=== PATIENT | female | born 1980 ===

== ENCOUNTER 2017-11-08 06:25 | Day surgery (SDC) | payer OTHER ==
[2017-11-07 13:58] VITALS: BMI 25.6
--- NOTE | 2017-11-08 07:33 | CP.SDSHP ---
Same Day Surgery H & P - History Proposed Procedure: laparoscopic BTL Pre-Op Diagnosis: Desired sterilization - Previous Medical/Surgical History Pulmonary: Asthma Comments: hx of asthma as a child Previous Surgical History: C/S 2008 - Allergies Allergies: Allergies Penicillins Allergy (Verified 11/07/17 13:57) RASH Sulfa (Sulfonamide Antibiotics) Adverse Reaction (Verified 11/07/17 13:57) RASH - Physical Exam General Appearance: w/o x3, NAD Vital Signs: Vital Signs 11/08/17 11/08/17 07:00 07:05 Temperature 98.1 F Pulse Rate 69 69 Respiratory 18 Rate Blood Pressure 135/90 O2 Sat by Pulse 98 Oximetry Mental Status: Alert & Oriented x3 Neuro: WNL Heart: WNL Lungs: WNL GI: WNL - {Optional Preform as Required} Breast: WNL Abdomen: Other Integument: WNL [employer]: WNL : WNL Other Pertinent Findings: old Abd scar - Impression Impression: desired infertility - Date & Time Date: 11/08/17 Time: 07:34 Short Stay Discharge - Short Stay Discharge Admitting Diagnosis/Reason for Visit: Z64.1 Disposition: HOME/ ROUTINE Referrals: Jag Yi MD [Primary Care Provider] -
[2017-11-08] MEDS ORDERED: Propofol 10 mg/ml Inj (20 ML) ONE (08:00)
[2017-11-08] MEDS ORDERED: Rocuronium 10 mg/ml (5 ml) ONE (08:01)
[2017-11-08] MEDS ORDERED: Succinylcholine 200 mg/10 ml Inj IV ONE (08:01)
[2017-11-08] MEDS ORDERED: Midazolam 2 MG/2 ML VIAL ONE (08:01)
[2017-11-08] MEDS ORDERED: Sevoflurane - Inhalation Anesthetic Liq (250 ml) ONE (08:02)
[2017-11-08] MEDS ORDERED: Neostigmine Methylsulfate 3mg/3ml Syringe IV ONE (08:07)
[2017-11-08] MEDS ORDERED: Lactated Ringer's 1,000 ML IV ONE (08:09)
[2017-11-08] MEDS ORDERED: Lactated Ringer's 500 ML IV ONE (08:45)
[2017-11-08] MEDS ORDERED: DiphenhydrAMINE 50 mg/ml Inj IVP PRN (09:22)
[2017-11-08] MEDS ORDERED: Lactated Ringer's 1,000 ML IV SCH (09:30)
[2017-11-08] MEDS: HYDROmorphone 0.5 mg/0.5 ml ISec IVP PRN ×3 (09:30→10:00)
[2017-11-08] MEDS ORDERED: HYDROmorphone 0.5 mg/0.5 ml ISec IVP PRN (10:05)
[2017-11-08 11:40] VITALS: RESP 18
[2017-11-08] MEDS ORDERED: Oxycodone/Acetaminophen 5/325 mg Tab PO STA (13:10)
[2017-11-08] MEDS ORDERED: Oxycodone/Acetaminophen 5/325 mg Tab PO ONE (13:35)
[2017-11-08 14:05] VITALS: O2SAT 99
--- NOTE | 2017-11-08 14:13 | CP.SDSHP ---
Same Day Surgery H & P - Allergies Allergies: Allergies Penicillins Allergy (Verified 11/07/17 13:57) RASH Sulfa (Sulfonamide Antibiotics) Adverse Reaction (Verified 11/07/17 13:57) RASH - Physical Exam Vital Signs: Vital Signs 11/08/17 11/08/17 11/08/17 07:00 07:05 09:10 Temperature 98.1 F 95.8 F L Pulse Rate 69 69 92 H Respiratory 18 18 Rate Blood Pressure 135/90 137/91 H O2 Sat by Pulse 98 100 Oximetry 11/08/17 11/08/17 11/08/17 09:25 09:40 09:55 Temperature 95.5 F L 96.1 F L 97.0 F L Pulse Rate 77 67 65 Respiratory 18 20 20 Rate Blood Pressure 135/87 128/74 124/75 O2 Sat by Pulse 100 100 100 Oximetry 11/08/17 11/08/17 11/08/17 10:10 10:40 11:00 Temperature 97.6 F 97.5 F L Pulse Rate 73 84 69 Respiratory 18 18 20 Rate Blood Pressure 121/76 127/76 127/70 O2 Sat by Pulse 100 99 98 Oximetry 11/08/17 11/08/17 11/08/17 11:10 11:50 12:28 Temperature 97.8 F 97.5 F L Pulse Rate 74 74 Respiratory 18 18 Rate Blood Pressure 114/71 113/75 O2 Sat by Pulse 99 99 100 Oximetry 11/08/17 11/08/17 13:10 14:05 Temperature 97.8 F 97.8 F Pulse Rate 74 76 Respiratory 18 18 Rate Blood Pressure 114/71 122/82 O2 Sat by Pulse 99 99 Oximetry Short Stay Discharge - Short Stay Discharge Admitting Diagnosis/Reason for Visit: Z64.1 Referrals: Jag Yi MD [Primary Care Provider] - Follow-up: 2 wks in office Additional Instructions (Diet, Activity): pelvic and bed rest Progress Note/Discharge Note with Instructions: tolerated procedure well no complications Recovered well Procedure explained
[2017-11-08 15:49] VITALS: BP 123/76; PULSE 75; TEMP 97.6
--- NOTE | 2017-11-12 01:26 | OP ---
PROCEDURE DATE: 11/08/2017 UNIT NUMBER: [id number] PREOPERATIVE DIAGNOSES: 1. Undesired fertility and undesired intrauterine contraceptive device. 2. Desired tubal sterilization. POSTOPERATIVE DIAGNOSES: 1. Undesired fertility and undesired intrauterine contraceptive device. 2. Desired tubal sterilization. 3. Adhesions of the left adnexa area to the left pelvic wall. SURGEON: Jag Yi MD ANESTHESIA USED: General endotracheal by Dr. Chauhan. PROCEDURE PERFORMED: 1. Laparoscopic tubal sterilization using bilateral electrocoagulation. 2. Removal of intrauterine contraceptive device. DESCRIPTION OF PROCEDURE: The patient was taken to the operating room and placed on the operating table in a supine position. Following induction of general endotracheal anesthesia, the patient was then replaced in a dorsal lithotomy position. Perineal, genital, and abdominal areas were draped and prepped in the usual sterile manner. At this time, we then proceeded to place a sterile catheter into the bladder and clear urine was then evacuated from the bladder and the patient was then examined under anesthesia with some of the above findings. Heavy weighted speculum was then placed in the posterior wall of vagina thus exposing the cervix. The anterior lip of the cervix was then grasped using a single-tooth tenaculum. An IUD string was visualized at this time and it was then grasped using a forceps and a T-type IUD was then removed in toto and the specimen was sent to pathology for pathological evaluation. After this, we then proceeded to dilating endocervical canal using Hanks dilators in an increasing sized manner. A HUMI cannula was then inserted into the endocervical canal in order to manipulate the cervix and the uterus. Following this, we then proceeded to remove the single-tooth tenaculum, no bleeding noted, and attention was then given to the abdomen. At the umbilicus, a Veress needle was then introduced into the abdomen and about 5 liters of carbon dioxide was then introduced into the abdomen thus creating a pneumoperitoneum. Following this, a 1-cm incision was then made at the umbilicus and under direct visualization, a 10-mm trocar was then introduced into the abdomen. Through the trocar sheath, a laparoscope was then introduced. Visualization of the area underneath the insertion revealed no signs of trauma. At this time, a 5-mm trocar was then inserted suprapubically under direct visualization. The uterus was then mobilized, appeared to be normal sized and smooth, and the right tube and ovary appeared grossly within normal limits to inspection. The left tube appeared to be with some adhesions to the left pelvic wall and a small follicular cyst noted on the ovary. At this time, the right fallopian tube was then followed to its fimbriated end and using the Kleppinger forceps, was then grasped at the ampullary region and away from adjacent structures. Under direct visualization, an electrocoagulation was then performed and about 3 cm to 4 cm section of the tube was then electrocoagulated. The same procedure was then performed in the contralateral side without any complications. Following bilateral tubal sterilization, all operative areas checked, hemostatically secured. The 5-mm trocar was then removed. Some of the air was then allowed to escape from the abdomen and all operative areas were checked and hemostatically secured. Following this, we then proceeded to remove the pneumoperitoneum as much as we could and after evacuating most of the pneumoperitoneum, the 10-mm trocar and laparoscope were then removed under direct visualization. An 0 Vicryl suture was then placed underneath the fascia in the umbilicus area and the skin was then approximated using a 3-0 Monocryl for both incisions. Dermabond was then applied to both the areas. HUMI cannula was then removed, no bleeding noted. The patient tolerated the procedure well. There were no complications. She was transferred to the recovery room in satisfactory condition. Sponge, instrument, and needle counts were correct x3. Jag Yi MD
== END 2017-11-08 15:55 | disposition home or self-care (01) ==
LOC: H.OPSURG 06:25
PROVIDERS: ATTEND Specialist
DX: Z64.1 Problems related to multiparity (principal); Z88.2 Allergy status to sulfonamides; Z88.0 Allergy status to penicillin; Z30.2 Encounter for sterilization; N73.6 Female pelvic peritoneal adhesions (postinfective); J45.909 Unspecified asthma, uncomplicated
CPT/HCPCS: 58301; 58600; 88304; J0330; J1170; J2001; J2250; J2405; J2704; J2710; J3010; J7030; J7120